=== PATIENT | female | born 1980 | race Caucasian/White ===

== ENCOUNTER 2016-11-20 19:50 | Emergency (ER) | payer OTHER ==
--- NOTE | ~2016-11-20 | CT2 ---
[facility] A Service of [facility] RADIOLOGY TEXT RESULTS PATIENT: DONALD KINGSLEY LOCATION: SED : [birth year] UNIT #: [id number] AGE: [address]: MICHAEL ORTIZ SEX: F ORDER DR: [id number] [place] [id number] E MR#: [id number] Acc #: [id number] NAME: DONALD KINGSLEY : 1980 SEX: F STUDY DATE/TIME: 11/20/2016 22:05 UNIT: SED ROOM: STUDY DESCRIPTION: CT Abd and Pelv W Cont Attending Physician: Bret Ortiz Referring Physician: Bret Ortiz Ordering Physician: Bret Ortiz Primary Care Physician: Sophia Cummings Aprn MEDICAL IMAGING REPORT This report is preliminary unless electronic signature is present. EXAM CT abdomen and pelvis with contrast. DATE OF EXAM 11/20/2016 HISTORY 36-year-old female in the ED complaining of 2-week history of low back and hip pain. Now with right lower quadrant abdomen pain. Evaluation for appendicitis is requested. TECHNIQUE CT examination of the abdomen and pelvis was performed with IV contrast. GI contrast material was not ordered. The lack of GI contrast limits evaluation of the GI tract. NOTE: This CT exam was performed with one or more of the following radiation dose reduction techniques: automatic exposure control, adjustment of mA and/or kV according to patient size, and iterative reconstruction. FINDINGS ABDOMEN: Cholecystectomy. No significant bile duct dilatation. The liver, pancreas and spleen are normal in size and appearance. Both kidneys are negative with no evidence of urinary obstruction. Small bowel and colon are normal in caliber and appearance, as imaged. Visualized portions of the of the appendix are negative. Normal-caliber abdominal aorta. PELVIC: Uterus, ovaries, bladder and rectum are within normal limits. Bilateral tubal ligation clips. No inguinal hernia. Limited lung base images are negative. IMPRESSION [facility] A Service of [facility] RADIOLOGY TEXT RESULTS PATIENT: DONALD KINGSLEY LOCATION: SED : [birth year] UNIT #: [id number] AGE: [address]: MICHAEL ORTIZ SEX: F ORDER DR: 1. No acute abnormality within the abdomen or pelvis. 2. Cholecystectomy. 3. Visualized appendix is normal. Dictated by... Be Boyd M.D. THIS IS AN ELECTRONICALLY VERIFIED REPORT Be Boyd M.D. at 11/21/2016 5:57 AM CHELA/nathaniel TD: 11/20/2016 22:30 JOB #: [id number] MEDICAL IMAGING REPORT Page 1 of 1
[~2016-11-20 19:50] MED LIST: ACETAMINOPHEN PO; COMPAZINE10 MG PO; DARVOCET-N 1001 TAB PO; DIAZEPAM PO; DICYCLOMINE HCL20 MG PO; DOLOBID500 MG PO; FLEXERIL PO; FLEXERIL10 MG PO; IBUPROFEN800 MG PO; ILOTYCIN1 GM OD; KETOPROFEN PO; LORTAB 10-5001 EACH PO; LORTAB 5/500 TA1 TA1 PO; MEDROL PO; NAPROXEN PO; NEURONTIN800 MG PO; PERCOCET5/325 PO; PHENERGAN PO; PHENERGAN12.5 MG PO; PROTONIX PO; PROVERA PO; SEROQUEL; TAMIFLU75 MG PO; TRAMADOL HCL50 M2 PO; TRAZODONE HCL150 MG PO; TYLOX 5-500 CA1 EACH PO; ULTRAM PO; VICODIN 5/500 T1 TAB PO; VYVANSE40 MG; ZITHROMAX PO; ZOLOFT PO
[2016-11-20 20:04] LABS: URINE SOURCE CLEAN CATCH
[2016-11-20 20:06] LABS: URINE APPEARANCE CLEAR; URINE BILIRUBIN NEG (NEG); URINE COLOR YELLOW; URINE GLUCOSE NEG (NORM); URINE KETONE NEG (NEG); URINE LEUKOCYTE ESTERASE NEG (NEG); URINE NITRATE NEG (NEG); URINE PH 6.5 (5-8); URINE PROTEIN NEG (NEG); URINE SPECIFIC GRAVITY <=1.005 (1.003-1.035); URINE UROBILINOGEN 0.2 MG/DL (NORM)
[2016-11-20 20:07] LABS: MICRO INDICATED? NO; URINE BLOOD NEG (NEG)
[2016-11-20 20:08] LABS: BASOPHIL# 0.1 X10e3 (0-0.3); BASOPHIL% 0.8 % (0-2.5); EOSINOPHIL# 0.1 X10e3 (0-0.7); HEMATOCRIT 41.1 % (35.0-45.0); HEMOGLOBIN 13.9 gm/dL (12.0-16.0); LYMPHOCYTE# 3.2 X10e3 (1.0-3.5); LYMPHOCYTE% 33.3 % (17.0-45.0); MEAN CELL VOLUME 93.1 FL (83-96); MEAN CORPUSCULAR HEMOGLOBIN 31.4 PG (28-34); MEAN CORPUSCULAR HGB CONC 33.7 g/dL (30-36); MEAN PLATELET VOLUME 8.6 FL (6.5-11.5); MONOCYTE# 0.5 X10e3 (0-1.0); MONOCYTE% 5.5 % (3.0-12.0); NEUTROPHIL# 5.7 X10e3 (1.5-7.1); NEUTROPHIL% 59.4 % (40-75); PLATELET COUNT 279 X10e3 (140-420); RED BLOOD COUNT 4.42 X10e (3.90-5.30); RED CELL DISTRIBUTION WIDTH 13.9 % (11.0-15.5); WHITE BLOOD COUNT 9.6 X10e3 (4.0-10.5)
[2016-11-20 20:09] LABS: DIFF IND NO
[2016-11-20 20:28] LABS: ALBUMIN SERUM 4.8 g/dL (3.5-5.0); BILIRUBIN,TOTAL 0.2 mg/dL (0.2-2.0); CALCIUM SERUM 9.4 mg/dL (8.4-10.2); CREATININE SERUM 0.8 mg/dL (0.6-1.4); GLOM FILT RATE Estimated 94.9 mL/min (>60); POTASSIUM 3.3 mmol/L (3.5-5.1); PROTEIN TOTAL SERUM 8.4 g/dL (6.0-8.3)
[2016-11-24 08:05] LABS: CHLAMYDIA TRACH Not Detected (Not Detected); N GONOR Not Detected (Not Detected)
== END 2016-11-20 23:04 | disposition home or self-care (01) ==
LOC: SED 19:50
PROVIDERS: Nurse Practitioner
DX: N76.0 Acute vaginitis (principal); R03.0 Elevated blood-pressure reading, without diagnosis of hypertension; M54.41 Lumbago with sciatica, right side; F31.9 Bipolar disorder, unspecified; K21.9 Gastro-esophageal reflux disease without esophagitis; F42.9 Obsessive-compulsive disorder, unspecified; Z20.2 Contact with and (suspected) exposure to infections with a predominantly sexual mode of transmission; Z98.51 Tubal ligation status; Z90.49 Acquired absence of other specified parts of digestive tract; F17.210 Nicotine dependence, cigarettes, uncomplicated; Z79.899 Other long term (current) drug therapy; Z88.5 Allergy status to narcotic agent; Z91.040 Latex allergy status; Z88.8 Allergy status to other drugs, medicaments and biological substances
CPT/HCPCS: 36415; 74177; 80053; 81003; 84703; 85025; 87210; 87491; 87591; 87808; 87905; 96372; 96374; 99284; J0696; J2405; Q9967